=== PATIENT | female | born 1955 | race Caucasian/White ===

== ENCOUNTER 2018-12-14 22:45 | Emergency (ER) | payer OTHER ==
[2018-12-14 23:51] LABS: Absolute Lymphocytes (CBC) 3.9 K/uL (0.7-4.9); Basophils % 0.4 % (0-1.3); Eosinophils % 4.6 % (0-4.4); Hematocrit 37.6 % (36.0-45.0); Lymphocytes % 43.7 % (15.3-44.8); MPV 7.3 fL (7.6-11.3); Monocytes % 7.1 % (3.3-12.3); RBC Red Blood Cell Count 4.33 M/uL (3.86-4.86)
[2018-12-14 23:53] LABS: Protime INR 0.91
[2018-12-15 00:22] LABS: ALT/SGPT 19 U/L (12-78); AST/SGOT 18 U/L (15-37); Alkaline Phosphatase 68 U/L (45-117); BUN Blood Urea Nitrogen 14 mg/dL (7-18); Bicarbonate 28 mmol/L (21-32); Bilirubin Direct < 0.1 mg/dL (0-0.2); Bilirubin Total 0.3 mg/dL (0.2-1.0); Glucose Level 262 mg/dL (74-106); Magnesium 2.3 mg/dL (1.8-2.4); NT PRO-BNP 65 pg/mL (<125); Potassium 4.6 mmol/L (3.5-5.1); Protein, Total 8.1 g/dL (6.4-8.2); Sodium Level 139 mmol/L (136-145); Troponin (Emerg Dept Use Only) < 0.02 ng/mL (0.0-0.045)
--- NOTE | 2018-12-15 00:48 | ER ---
Nurse's Notes [facility] Name: Keiko Rodriguez Age: 63 yrs Sex: Female : 1955 Arrival Date: 12/14/2018 Time: 22:50 Bed 26 Private MD: Wilbur Leonard R Diagnosis: Pain in right shoulder Presentation: 12/14 23:11 Presenting complaint: Patient states: i have rotator cuff pain in both arms radiating mg2 to my neck that has been going on for few days now but aggravated by physical activity today like planting of grass. pain is more in the right arm. Transition of care: patient was not received from another setting of care. Onset of symptoms was December 14, 2018. Risk Assessment: Do you want to hurt yourself or someone else? Patient reports no desire to harm self or others. Initial Sepsis Screen: Does the patient meet any 2 criteria? No. Patient's initial sepsis screen is negative. Does the patient have a suspected source of infection? No. Patient's initial sepsis screen is negative. Care prior to arrival: None. 23:11 Method Of Arrival: Ambulatory mg2 23:11 Acuity: CITLALI 3 mg2 Triage Assessment: 23:16 General: Appears in no apparent distress. comfortable, Behavior is calm, cooperative. mg2 Pain: Complains of pain in both arms Pain radiates to neck Pain currently is 8 out of 10 on a pain scale. Quality of pain is described as aching, Pain began gradually, 2-3 days ago. Is intermittent. EENT: No deficits noted. Neuro: Level of Consciousness is awake, alert, obeys commands, Oriented to person, place, time, situation. Cardiovascular: Capillary refill < 3 seconds Patient's skin is warm and dry. Respiratory: Airway is patent Respiratory effort is even, unlabored, Respiratory pattern is regular, symmetrical. GI: No signs and/or symptoms were reported involving the gastrointestinal system. : No signs and/or symptoms were reported regarding the genitourinary system. Derm: Skin is intact, is healthy with good turgor, Skin is pink, warm \T\ dry. normal. Musculoskeletal: Circulation, motion, and sensation intact. Capillary refill < 3 seconds, Reports pain in right arm and left arm. Historical: - Allergies: 23:15 Morphine; mg2 23:15 Tramadol HCl; mg2 23:15 morphine derivatives; mg2 - PMHx: 23:15 Diabetes; mg2 - PSHx: 23:15 Carpal Tunnel Repair; ; mg2 - Immunization history:: Flu vaccine is up to date. - Social history:: Smoking status: Patient/guardian denies using tobacco, Patient/guardian denies using alcohol, street drugs, IV drugs. - Ebola Screening: : No symptoms or risks identified at this time. Screenin:19 Abuse screen: Denies threats or abuse. Denies injuries from another. Nutritional mg2 screening: No deficits noted. Tuberculosis screening: No symptoms or risk factors identified. Fall Risk None identified. Assessment: 23:18 Reassessment: pls see triage assessment. mg2 Vital Signs: 23:00 BP 181 / 83; Pulse 81; Resp 20; Temp 98.4(O); Pulse Ox 98% ; Weight 67.13 kg; Height 5 mg2 ft. 2 in. (157.48 cm); Pain 8/10; 23:42 BP 176 / 78; Pulse 80; Resp 18; Pulse Ox 97% on R/A; mg2 12/15 00:04 BP 184 / 85 Supine; Pulse 79; lt1 00:04 BP 180 / 83 Sitting; Pulse 80; lt1 00:04 BP 159 / 77 Standing; Pulse 82; lt1 12/14 23:00 Body Mass Index 27.07 (67.13 kg, 157.48 cm) mg2 ED Course: 12/14 22:50 Patient arrived in ED. do 22:50 Wilbur Leonard MD is Private Physician. do 22:58 Gaston Vieira NP is PHCP. pm1 22:58 Del Infante MD is Attending Physician. pm1 23:11 Aristeo Ponce RN is Primary Nurse. mg2 23:14 Triage completed. mg2 23:16 Arm band placed on. mg2 23:19 Patient has correct armband on for positive identification. Pulse ox on. NIBP on. Door mg2 closed. Warm blanket given. 23:41 No provider procedures requiring assistance completed. Inserted saline lock: 20 gauge mg2 in left antecubital area, using aseptic technique. Blood collected. 23:44 XRAY Chest (1 view) In Process Unspecified. EDMS 23:44 Shoulder Right (2 View) XRAY In Process Unspecified. EDMS 12/15 00:37 Sling applied to right arm. mg2 01:20 IV discontinued, intact, bleeding controlled, No redness/swelling at site. Pressure la1 dressing applied. Administered Medications: 01:20 Drug: lidocaine 5% patch 1 patches Route: Topical; Site: affected area; la1 Outcome: 00:47 Discharge ordered by MD. pm1 01:20 Discharged to home ambulatory. la1 01:20 Condition: stable 01:20 Discharge instructions given to patient, Instructed on discharge instructions, follow up and referral plans. medication usage, Demonstrated understanding of instructions, follow-up care, medications, Prescriptions given X 1. 01:21 Patient left the ED. la1 Signatures: Dispatcher [employer] EDMS Santos Mcqueen RN RN la1 Shiloh Fish Patrick, NP [employer] pm1 Aristeo Ponce RN RN mg2 Kelsy Silverio lt1 Corrections: (The following items were deleted from the chart) 12/14 23:16 23:11 Acuity: CITLALI 4 mg2 mg2 23:19 23:00 BP 181 / 83; Pulse 81bpm; Resp 20bpm; Pulse Ox 98%; Temp 98.4F Oral; lt1 mg2
--- NOTE | 2018-12-15 00:48 | EDPHYS ---
Physician Documentation [facility] Name: Keiko Rodriguez Age: 63 yrs Sex: Female : 1955 Arrival Date: 12/14/2018 Time: 22:50 Bed 26 Private MD: Wilbur Leonard R ED Physician Del Infante HPI: 12/14 23:25 This 63 yrs old Female presents to ER via Ambulatory with complaints of Right pm1 Shoulder pain. 23:25 The patient or guardian complains of pain, that is acute. The complaints affect the pm1 anterior aspect of right shoulder. Context: The problem was sustained at home, resulted from attempting to spank grandchild. Onset: The symptoms/episode began/occurred today. Treatment prior to arrival includes: no previous treatment. Modifying factors: The symptoms are alleviated by remaining still, the symptoms are aggravated by movement. Associated signs and symptoms: Pertinent negatives: deformity, fever, numbness, swelling, tingling. Severity of symptoms: in the emergency department the symptoms are unchanged. The patient has experienced similar episodes in the past, prior history of injured bilateral rotator cuffs. The patient has not recently seen a physician. Historical: - Allergies: 23:15 Morphine; mg2 23:15 Tramadol HCl; mg2 23:15 morphine derivatives; mg2 - PMHx: 23:15 Diabetes; mg2 - PSHx: 23:15 Carpal Tunnel Repair; ; mg2 - Immunization history:: Flu vaccine is up to date. - Social history:: Smoking status: Patient/guardian denies using tobacco, Patient/guardian denies using alcohol, street drugs, IV drugs. - Ebola Screening: : No symptoms or risks identified at this time. ROS: 23:25 Constitutional: Negative for fever, chills, and weight loss, Eyes: Negative for injury, pm1 pain, redness, and discharge, ENT: Negative for injury, pain, and discharge, Neck: Negative for injury, pain, and swelling, Cardiovascular: Negative for chest pain, palpitations, and edema, Respiratory: Negative for shortness of breath, cough, wheezing, and pleuritic chest pain, Abdomen/GI: Negative for abdominal pain, nausea, vomiting, diarrhea, and constipation, Back: Negative for injury and pain, : Negative for injury, bleeding, discharge, and swelling, MS/Extremity: Negative for injury and deformity, Skin: Negative for injury, rash, and discoloration. 23:25 Neuro: Positive for dizziness, for the past month with exertion, Negative for headache, numbness, tingling. Exam: 23:25 Constitutional: This is a well developed, well nourished patient who is awake, alert, pm1 and in no acute distress. Head/Face: Normocephalic, atraumatic. Eyes: Pupils equal round and reactive to light, extra-ocular motions intact. Lids and lashes normal. Conjunctiva and sclera are non-icteric and not injected. Cornea within normal limits. Periorbital areas with no swelling, redness, or edema. ENT: Nares patent. No nasal discharge, no septal abnormalities noted. Tympanic membranes are normal and external auditory canals are clear. Oropharynx with no redness, swelling, or masses, exudates, or evidence of obstruction, uvula midline. Mucous membranes moist. Neck: Trachea midline, no thyromegaly or masses palpated, and no cervical lymphadenopathy. Supple, full range of motion without nuchal rigidity, or vertebral point tenderness. No Meningismus. Chest/axilla: Normal chest wall appearance and motion. Nontender with no deformity. No lesions are appreciated. Cardiovascular: Regular rate and rhythm with a normal S1 and S2. No gallops, murmurs, or rubs. Normal PMI, no JVD. No pulse deficits. Respiratory: Lungs have equal breath sounds bilaterally, clear to auscultation and percussion. No rales, rhonchi or wheezes noted. No increased work of breathing, no retractions or nasal flaring. Abdomen/GI: Soft, non-tender, with normal bowel sounds. No distension or tympany. No guarding or rebound. No evidence of tenderness throughout. Back: No spinal tenderness. No costovertebral tenderness. Full range of motion. Skin: Warm, dry with normal turgor. Normal color with no rashes, no lesions, and no evidence of cellulitis. 23:25 Musculoskeletal/extremity: Extremities: grossly normal except: noted in the anterior aspect of right shoulder: pain with attempting to move arm up to shoulder level. able to move down right arm smoothly and slowly, There is no evidence of deformity, Circulation is intact in all extremities. 23:25 Neuro: Orientation: is normal, Cranial nerves: grossly normal, CN II- XII are normal as tested, Motor: no acute changes, moves all fours, Sensation: is normal, no obvious gross deficits, Gait: is steady, at a normal pace, without difficulty. Vital Signs: 23:00 BP 181 / 83; Pulse 81; Resp 20; Temp 98.4(O); Pulse Ox 98% ; Weight 67.13 kg; Height 5 mg2 ft. 2 in. (157.48 cm); Pain 8/10; 23:42 BP 176 / 78; Pulse 80; Resp 18; Pulse Ox 97% on R/A; mg2 12/15 00:04 BP 184 / 85 Supine; Pulse 79; lt1 00:04 BP 180 / 83 Sitting; Pulse 80; lt1 00:04 BP 159 / 77 Standing; Pulse 82; lt1 12/14 23:00 Body Mass Index 27.07 (67.13 kg, 157.48 cm) mg2 MDM: 12/14 23:07 Patient medically screened. pm1 12/15 00:29 Data reviewed: vital signs. Data interpreted: Pulse oximetry: on room air is 97 %. pm1 Interpretation: normal. Counseling: I had a detailed discussion with the patient and/or guardian regarding: the historical points, exam findings, and any diagnostic results supporting the discharge/admit diagnosis, lab results, radiology results, the need for outpatient follow up, a orthopedic surgeon, to return to the emergency department if symptoms worsen or persist or if there are any questions or concerns that arise at home. 12/14 23:17 Order name: Basic Metabolic Panel pm1 12/14 23:17 Order name: CBC with Diff; Complete Time: 00:27 pm12/14 23:17 Order name: LFT's pm12/14 23:17 Order name: Magnesium pm1 12/14 23:17 Order name: NT PRO-BNP; Complete Time: 00:27 pm1 12/14 23:17 Order name: PT-INR; Complete Time: 00:27 pm1 12/14 23:17 Order name: Troponin (emerg Dept Use Only); Complete Time: 00:27 pm12/14 23:17 Order name: XRAY Chest (1 view) pm1 12/14 23:17 Order name: EKG; Complete Time: 23:19 pm1 06/30 23:17 Order name: Shoulder Right (2 View) XRAY pm1 12/14 23:18 Order name: Basic Metabolic Panel; Complete Time: 00:27 EDMS 12/14 23:18 Order name: Liver (Hepatic) Function; Complete Time: 00:27 EDMS 12/14 23:18 Order name: Magnesium; Complete Time: 00:27 EDMS 12/14 23:17 Order name: Cardiac monitoring; Complete Time: 23:41 pm1 12/14 23:17 Order name: EKG - Nurse/Tech; Complete Time: 23:41 pm1 12/14 23:17 Order name: IV Saline Lock; Complete Time: 23:41 pm1 12/14 23:17 Order name: Labs collected and sent; Complete Time: 23:41 pm1 12/14 23:17 Order name: O2 Per Protocol; Complete Time: 23:41 pm1 12/14 23:17 Order name: O2 Sat Monitoring; Complete Time: 23:41 pm1 12/14 23:17 Order name: Orthostatic Blood Pressure; Complete Time: 00:02 pm1 12/14 23:28 Order name: Sling; Complete Time: 00:37 pm1 Administered Medications: 01:20 Drug: lidocaine 5% patch 1 patches Route: Topical; Site: affected area; la1 Disposition: 12/15/18 00:47 Discharged to Home. Impression: Pain in right shoulder. - Condition is Stable. - Discharge Instructions: Shoulder Pain, How to Use a Sling. - Prescriptions for Diclofenac Sodium 75 mg Oral Tablet Sustained Release - take 1 tablet by ORAL route 2 times per day; 30 tablet. - Medication Reconciliation Form, Thank You Letter, Antibiotic Education, Prescription Opioid Use form. - Follow up: Emergency Department; When: As needed; Reason: Worsening of condition. Follow up: Private Physician; When: 2 - 3 days; Reason: Recheck today's complaints, Continuance of care, Re-evaluation by your physician. - Problem is new. - Symptoms have improved. Signatures: Dispatcher [employer] EDMS Santos Mcqueen RN RN la1 Gaston Vieira, [place] PATIENT [employer]ANION pm1 Aristeo Ponce RN RN mg2 Corrections: (The following items were deleted from the chart) 01:21 00:47 12/15/2018 00:47 Discharged to Home. Impression: Pain in right shoulder. la1 Condition is Stable. Forms are Medication Reconciliation Form, Thank You Letter, Antibiotic Education, Prescription Opioid Use. Follow up: Emergency Department; When: As needed; Reason: Worsening of condition. Follow up: Private Physician; When: 2 - 3 days; Reason: Recheck today's complaints, Continuance of care, Re-evaluation by your physician. Problem is new. Symptoms have improved. pm1
[2018-12-15] MEDS ORDERED: LIDOCAINE 5% PATCH ONE (01:26)
--- NOTE | 2018-12-15 08:28 | RAD REPORT ---
EXAM DESCRIPTION: Shoulder Right 2 View - 12/14/2018 11:44 pm CLINICAL HISTORY: Right shoulder pain, suspected rotator cuff tear COMPARISON: None. TECHNIQUE: Internal and external rotation views of the right shoulder were obtained. FINDINGS: There is no fracture or dislocation. AC joint degenerative changes are present mild for a ge. Degenerative changes seen along the undersurface of the acromion. Acromial humeral joint space is normal. There are faint calcifications likely related to a calcific tendinitis. Minimal spurring is seen at the greater tuberosity. No acute or suspicious findings. IMPRESSION: Right shoulder degenerative changes are present without an acute finding seen. Concerns for rotator cuff tear can be addressed with MR imaging.
--- NOTE | 2018-12-15 08:30 | RAD REPORT ---
EXAM DESCRIPTION: RAD - Chest Single View - 12/14/2018 11:44 pm CLINICAL HISTORY: Chest pain, bilateral shoulder pain COMPARISON: None. TECHNIQUE: AP portable chest image was obtained 2335 hours . FINDINGS: Lungs are clear. Heart and vasculature are normal. No measurable pleural effusion and no p neumothorax. No acute bony abnormality seen. No acute aortic findings suspected. IMPRESSION: No acute cardiopulmonary process.
--- NOTE | 2018-12-15 19:44 | EKG ---
Test Date: 2018-12-14 Test Time: 23:23:14 Plugman: MG MEASUREMENT RESULTS: Intervals: Rate: 82 ND: 210 QRSD: 78 QT: 382 QTc: 446 [place]: P: 49 ND: 210 QRS: -24 T: 30 INTERPRETIVE STATEMENTS: Sinus rhythm with 1st degree AV block Septal infarct, age undetermined Abnormal ECG Compared to ECG 05/27/1999 20:45:00 First degree AV block now present Myocardial infarct finding now present Electronically Signed On 12-15-18 19:40:41 CDT by Bautista Garrison
== END 2018-12-15 01:21 | disposition home or self-care (01) ==
LOC: ER 22:45
DX: M25.511 Pain in right shoulder (principal); Z88.5 Allergy status to narcotic agent; Z88.6 Allergy status to analgesic agent
CPT/HCPCS: 36415; 71045; 80048; 80076; 83735; 83880; 84484; 85025; 85610; 93005; 99284

== ENCOUNTER 2019-06-28 19:38 | Emergency (ER) | payer OTHER ==
--- OUTSIDE RECORDS SUMMARY | 2019-06-28 19:40 | XMS REPORT ---
:1955 [facility] Address [address] [place] [address] Dr. Silver [address] [place] [id number] Care Team Providers Name Role Phone Unavailable Unavailable Unavailable Problems This patient has no known problems. Allergies, Adverse Reactions, Alerts This patient has no known allergies or adverse reactions. Medications This patient has no known medications.
--- OUTSIDE RECORDS SUMMARY | 2019-06-28 19:40 | XMS REPORT | Summary of Care ---
:1955 Author Organization [facility] Address [address] [place] [address] Care Team Providers Name Role Phone Víctor Lr MD Primary Care Provider Reason for Referral MRI/CAT Scan (Routine) Status Reason Specialty Diagnoses / Referred By Referred To Procedures Contact Contact New Request Diagnostic Diagnoses Adhesive capsulitis of right shoulder Víctor Lr Radiology Procedures MR SHOULDER RIGHT WO CONTRAST MD HEATH [address] [place] [address] [address] [place] [address] (Routine) Status Reason Specialty Diagnoses / Referred By Referred To Procedures Contact Contact New Request Location Psychiatry Diagnoses Major depressive disorder with current active episode, unspecified depression episode severity, unspecified whether recurrent Víctor Lr Preference Procedures CONSULT/REFERRAL PSYCHOLOGY MD HEATH [address] [place] [address] [address] [place] [address] Reason for Visit Reason Comments REFERRAL Ortho Diabetes Shoulder Pain 12/24 Pelvic Pain right side Depression Encounter Details Date Type Department Care Team Description 02/10/2019 Office Visit [facility] Pediatric Víctor Lr III, Adhesive capsulitis of right shoulder (Primary Dx); and Adult Primary MD Major depressive disorder with current active episode, unspecified depression episode severity, unspecified whether recurrent Care- [address] [place] [address] , [address] [place] [address] [place], [place] [phone] Allergies Active Allergy Reactions Severity Noted Date Comments Morphine Rash 02/18/2018 Tramadol Nausea and/or Vomiting High 02/18/2018 documented as of this encounter (statuses as of 02/10/2019) Medications Medication Sig Dispensed Refills Start Date End Date Status Insulin Detemir inject 42 Units 1 Box 11 02/18/2018 Active (LEVEMIR FLEXTOUCH under the skin U-100 INSULN) 100 daily. unit/mL (3 mL) injection Insulin [place], Use as directed 1 Box 11 02/18/2018 Active Disposable, (ADVOCATE PEN NEEDLE) 31 gauge x 3/16" Ndle nitroglycerin Place 1 tablet 30 tablet 1 06/25/2018 Active (NITROSTAT) 0.4 mg under the tongue sublingual tablet every 5 (five) minutes as needed for Chest pain. lisinopril 10 mg tablet Take 1 tablet by 30 tablet 11 06/25/2018 Active mouth daily. Insulin Lispro, Human, inject 5-15 1 Box 11 07/29/2018 Active (HUMALOG U-100 INSULIN) Units under the 100 unit/mL cartridge skin before meals. ezetimibe 10 mg Take 1 tablet by 30 tablet 3 07/29/2018 Active tabletIndications: mouth daily. Mixed hyperlipidemia FLUoxetine 10 mg Take 1 capsule 30 capsule 11 02/10/2019 Active capsuleIndications: by mouth daily. Major depressive disorder with current active episode, unspecified depression episode severity, unspecified whether recurrent Hospital, Clinic, Ordered Dose Route Frequency Start Date End Date Status or Other Facility Administered Medication triamcinolone 40 mg Intra-artic ONCE 02/10/2019 Ended acetonide (KENALOG) u 9 injection 40 mg triamcinolone 40 mg Intra-artic ONCE 02/10/2019 Discontinued acetonide (KENALOG) u 9 injection 40 mg documented as of this encounter (statuses as of 02/10/2019) Active Problems Problem Noted Date Type 2 diabetes mellitus without complication, with long-term current use of insulin Essential hypertension 07/11/2018 Hyperlipidemia, unspecified hyperlipidemia type 07/11/2018 documented as of this encounter (statuses as of 02/10/2019) Immunizations Name Administration Dates Next Due Influenza Virus Vaccine Quad IM 3+ YRS 06/25/2018 documented as of this encounter Social History Tobacco Use Types Packs/Day Years Used Date Never Smoker Smokeless Tobacco: Never Used Alcohol Use Drinks/Week oz/Week Comments No Sex Assigned at Date Recorded Not on file Job Start Date Occupation Industry Not on file Not on file Not on file Travel History Travel Start Travel End No recent travel history available. documented as of this encounter Last Filed Vital Signs Vital Sign Reading Time Taken Comments Blood Pressure 138/79 02/10/2019 8:57 AM CDT Pulse 82 02/10/2019 8:57 AM CDT Temperature 36.8 C (98.3 F) 02/10/2019 8:57 AM CDT Respiratory Rate 18 02/10/2019 8:57 AM CDT Oxygen Saturation 96% 02/10/2019 8:57 AM CDT Inhaled Oxygen Concentration - - Weight 69.5 kg (153 lb 3.2 oz) 02/10/2019 8:57 AM CDT Height 157.5 cm (5' 2") 02/10/2019 8:57 AM CDT Body Mass Index 28.02 02/10/2019 8:57 AM CDT documented in this encounter Progress Notes Víctor Lr III, MD - 02/10/2019 8:40 AM CDT Cc: Chief Complaint Patient presents with REFERRAL Ortho Diabetes Shoulder Pain 12/24 Pelvic Pain right side Depression Keiko Rodriguez is a 63 year old female. Shoulder Pain The pain is present in the right shoulder. This is a recurrent problem. The current episode started more than 1 year ago. There has been no history of extremity trauma. The problem occurs intermittently. The problem has been gradually worsening. The quality of the pain is described as aching. The painis moderate. Associated symptoms include a limited range of motion. Pertinent negatives include no fever. The treatment provided mild relief. Medications Outpatient Medications Prior to Visit Medication Sig Dispense Refill Insulin Lispro, Human, (HUMALOG U-100 INSULIN) 100 unit/mL cartridge inject 5-15 Units under theskin before meals. 1 Box 11 lisinopril 10 mg tablet Take 1 tablet by mouth daily. 30 tablet 11 Insulin Detemir (LEVEMIR FLEXTOUCH U-100 INSULN) 100 unit/mL (3 mL) injection inject 42 Units under the skin daily. 1 Box 11 Insulin [place], Disposable, (ADVOCATE PEN NEEDLE) 31 gauge x 3/16" Ndle Use as directed 1 Box 11 ezetimibe 10 mg tablet Take 1 tablet by mouth daily. 30 tablet 3 nitroglycerin (NITROSTAT) 0.[address] 1 tablet under the tongue every 5 (five) minutes as needed for Chest pain. 30 tablet 1 No facility-administered medications prior to visit. Review of Systems Constitutional: Negative for fever and unexpected weight change. Respiratory: Negative for cough and shortness of breath. Cardiovascular: Negative for leg swelling. Genitourinary: Positive for pelvic pain. Musculoskeletal: Positive for arthralgias. Skin: Negative for rash. Neurological: Negative for headaches. Psychiatric/Behavioral: Positive for dysphoric mood and sleep disturbance. Hematological: Negative for adenopathy. Does not bruise/bleed easily. Vital Signs BP 138/79 (BP Location: Left arm, Patient Position: Sitting, BP CUFF SIZE: Adult Medium) | Pulse 82 | Temp 36.8 C (98.3 F) (Oral) | Resp 18 | Ht 5' 2" (1.575 m) | Wt 153 lb 3.2 oz (69.5 kg) |SpO2 96% | BMI 28.02 kg/m Physical Exam Constitutional: She is oriented to person, place, and time. No distress. Overweight female HENT: Head: Normocephalic. Eyes: Pupils are equal, round, and reactive to light. Neck: Normal range of motion. Cardiovascular: Normal rate and regular rhythm. Pulmonary/Chest: Effort normal. Musculoskeletal: She exhibits no edema. Very limited motion right shoulder, diffuse pain, left ok, Neurological: She is alert and oriented to person, place, and time. Skin: Skin is warm and dry. No rash noted. Psychiatric: depressed Vitals reviewed. Assessment/Plan 1. Major depressive disorder with current active episode, unspecified depression episode severity, unspecified whether recurrent - CONSULT/REFERRAL PSYCHOLOGY - FLUoxetine 10 mg capsule; Take 1 capsule by mouth daily. Dispense: 30 capsule ; Refill: 11 2. Adhesive capsulitis After verbal consent , right shoulder prepped with betadine, injected with posterior approach, with 40mg kenalog and 4ml of 1 % lidocaine. Patient tolerated well, cold compress on and off, then gentle rom exercises Will get mr of shoulder to evaluate tears documented in this encounter Plan of Treatment Name Type Priority Associated Diagnoses Order Schedule MR SHOULDER RIGHT WO IMAGING Routine Adhesive capsulitis of Expected: 02/10, CONTRAST right shoulder Expires: 02/11/2020 Health Maintenance Due Date Last Done Comments PNEUMOCOCCAL 0-64 YEARS COMBINED SERIES (1 1960 of 1 - PPSV23) EYE EXAM 1965 URINE MICROALBUMIN 1964 DTaP,Tdap,and Td Vaccines (1 - Tdap) 1973 PAP SMEAR 1975 COLONOSCOPY 2004 Zoster Recombinant Vaccine (SHINGRIX) (1 2004 of 2) HgA1C 12/23/2018 06/25/2018 INFLUENZA VACCINE (#1) 2019 06/25/2018 CREATININE (SERUM) 06/25/2019 06/25/2018 LDL-C 06/25/2019 06/25/2018 MAMMOGRAM 06/26/2019 06/26/2018 FOOT EXAM 07/29/2019 07/29/2018, 07/29/2018 HEPATITIS C (HCV) SCREEN Completed 06/25/2018 documented as of this encounter Results Not on filedocumented in this encounter Visit Diagnoses Diagnosis Adhesive capsulitis of right shoulder - Primary Adhesive capsulitis of shoulder Major depressive disorder with current active episode, unspecified depression episode severity, unspecified whether recurrent documented in this encounter Administered Medications Medication Order MAR Action Action Date Dose Rate Site triamcinolone acetonide (KENALOG) Given 02/10/2019 9:42 AM CDT 40 mg injection 40 mg 40 mg, Intra-articular, ONCE, 1 dose, 02/10/19 at 1045, Routine documented in this encounter documented as of this encounter
--- OUTSIDE RECORDS SUMMARY | 2019-06-28 19:41 | XMS REPORT | Summary of Care ---
:1955 Author Organization [facility] Address [address] [place] [address] Care Team Providers Name Role Phone Víctor Lr MD Primary Care Provider Reason for Referral MRI/CAT Scan (Routine) Status Reason Specialty Diagnoses / Referred By Referred To Procedures Contact Contact Closed Diagnostic Diagnoses Adhesive capsulitis of right shoulder Víctor Lr Radiology Procedures MR SHOULDER RIGHT BENJAMIN SARKAR III, MD [address] [place] [address] [address] [place] [address] MRI/CAT Scan (Routine) Status Reason Specialty Diagnoses / Referred By Referred To Procedures Contact Contact Closed Diagnostic Diagnoses Adhesive capsulitis of right shoulder Víctor Lr Radiology Procedures MR SHOULDER RIGHT BENJAMIN SARKAR III, MD [address] [place] [address] [address] [place] [address] Reason for Visit MRI/CAT Scan (Routine) Status Reason Specialty Diagnoses / Referred By Referred To Procedures Contact Contact Closed Diagnostic Diagnoses Adhesive capsulitis of right shoulder Víctor Lr Radiology Procedures MR SHOULDER RIGHT WO MELLO JOE MD [address] [place] [address] Dr[address] [place] [address] Encounter Details Date Type Department Care Team Description 02/17/2019 Hospital Encounter [facility] Víctor Mendoza III, Arrived [place] [facility] [address] [place] [address] [phone] [place] [address] Allergies Active Allergy Reactions Severity Noted Date Comments Morphine Rash 02/18/2018 Tramadol Nausea and/or Vomiting High 02/18/2018 documented as of this encounter (statuses as of 02/18/2019) Medications Medication Sig Dispensed Refills Start Date End Date Status Insulin Detemir inject 42 Units 1 Box 11 02/18/2018 Active (LEVEMIR FLEXTOUCH under the skin U-100 INSULN) 100 daily. unit/mL (3 mL) injection Insulin [place], Use as directed 1 Box 11 02/18/2018 [...] depression episode severity, unspecified whether recurrent documented as of this encounter (statuses as of 02/18/2019) Active Problems Problem Noted Date Type 2 diabetes mellitus without complication, with long-term current use of insulin Essential hypertension 07/11/2018 Hyperlipidemia, unspecified hyperlipidemia type 07/11/2018 documented as of this encounter (statuses as of 02/18/2019) Immunizations Name Administration Dates Next Due Influenza [...] of this encounter Last Filed Vital Signs Not on filedocumented in this encounter Plan of Treatment Health Maintenance Due Date Last Done Comments [...] Completed 06/25/2018 documented as of this encounter Procedures Procedure Name Priority Date/Time Associated Diagnosis Comments MR SHOULDER RIGHT Routine 02/17/2019 9:46 AM Adhesive capsulitis Results for this WO CONTRAST CDT of right shoulder procedure are in the results section. documented in this encounter Results MR SHOULDER RIGHT WO CONTRAST (02/17/2019 9:46 AM CDT) Specimen Impressions Performed At PACS/VR/DOSE Rotator cuff tendon tears involving the supraspinatus, infraspinatus and subscapularis on a background of tendinosis as above-described. Extra-articular bicipital tenosynovitis with mild to moderate intra-articular tendinosis. 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 Degenerative signal of the superior labrum. Isolated fatty atrophy of the teres minor can be seen with quadrilateral space syndrome. Camron Young MD., have reviewed this study and agree with the above report. Narrative Performed At * * * * * * * * ORIGINAL REPORT * * * * * * * * PACS/VR/DOSE EXAM: MRI RIGHT SHOULDER COMPARISON: None. HISTORY: Shoulder pain, rotator cuff tear/impingement suspected TECHNIQUE AND FINDINGS: 1.5T multiplanar multiweighted MR imaging of the right shoulder was performed without IV contrast. BONE AND JOINT: Acromion morphology is type 1. A small subacromial enthesophyte is present and can predispose to external impingement. The acromioclavicular joint demonstrates osteophytosis, capsular hypertrophy, and subcortical cystic change, and small joint effusion, and marrow edema of the subarticular distal clavicle and the acromion. Trace volume glenohumeral joint effusion is present. Thinning of the glenohumeral cartilage is seen. No full-thickness or high-grade chondral loss is identified. No focal marrow signal intensity abnormality is present. Enthesophytosis of the greater tuberosity is noted. A degenerative cyst is noted at the lesser tuberosity. Intermediate signal is seen in the superior labrum at the 12:00 to 10:00 position. No labral detachment is identified. LIGAMENTS AND TENDONS: Biceps tendon:A small amount of fluid is in the biceps tendon sheath. There is thickening and increased signal of the intra-articular biceps tendon. Supraspinatus tendon: A bursal surface partial-thickness tear is noted at the humeral insertion with a full thickness perforation extending to the articular surface. No tendon retraction is noted. A background of moderate tendinosis is identified, manifested by thickening and increased signal of the tendon. Infraspinatus tendon: Partial-thickness interstitial tear is seen at the critical zone, extending to the musculotendinous junction. A background of tendinosis is also identified. Subscapularis tendon: The tendon is thickened with intermediate signal, consistent with moderate tendinosis. Articular surface fraying is identified. In addition, a subacute partial-thickness interstitial tear is better seen in the sagittal sequences. Medialization of the biceps tendon is identified, worrisome for biceps pully mechanism injury. Teres minor tendon: Intact. SOFT TISSUES: Isolated fatty atrophy of the teres minor is identified. No muscle edema is present. Trace fluid is present in the subacromial subdeltoid bursae. Small volume fluid distends the subcoracoid bursa. Procedure Note [facility], Radiant Results Inft User - 02/17/2019 3:58 PM CDT * * * * * * * * ORIGINAL REPORT * * * * * * * * EXAM: MRI RIGHT SHOULDER COMPARISON: None. HISTORY: Shoulder pain, rotator cuff tear/impingement suspected TECHNIQUE AND FINDINGS: 1.5T multiplanar multiweighted MR imaging of the right shoulder was performed without IV contrast. BONE AND JOINT: Acromion morphology is type 1. A small subacromial enthesophyte is present and can predispose to external impingement. The acromioclavicular joint demonstrates osteophytosis, capsular hypertrophy, and subcortical cystic change, and small joint effusion, and marrow edema of the subarticular distal clavicle and the acromion. Trace volume glenohumeral joint effusion is present. Thinning of the glenohumeral cartilage is seen. No full-thickness or high-grade chondral loss is identified. No focal marrow signal intensity abnormality is present. Enthesophytosis of the greater tuberosity is noted. A degenerative cyst is noted at the lesser tuberosity. Intermediate signal is seen in the superior labrum at the 12:00 to 10:00 position. No labral detachment is identified. LIGAMENTS AND TENDONS: Biceps tendon: A small amount of fluid is in the biceps tendon sheath. There is thickening and increased signal of the intra-articular biceps tendon. Supraspinatus tendon: A bursal surface partial-thickness tear is noted at the humeral insertion with a full thickness perforation extending to the articular surface. No tendon retraction is noted. A background of moderate tendinosis is identified, manifested by thickening and increased signal of the tendon. Infraspinatus tendon: Partial-thickness interstitial tear is seen at the critical zone, extending to the musculotendinous junction. A background of tendinosis is also identified. Subscapularis tendon: The tendon is thickened with intermediate signal, consistent with moderate tendinosis. Articular surface fraying is identified. In addition, a subacute partial-thickness interstitial tear is better seen in the sagittal sequences. Medialization of the biceps tendon is identified, worrisome for biceps pully mechanism injury. Teres minor tendon: Intact. SOFT TISSUES: Isolated fatty atrophy of the teres minor is identified. No muscle edema is present. Trace fluid is present in the subacromial subdeltoid bursae. Small volume fluid distends the subcoracoid bursa. IMPRESSION Rotator cuff tendon tears involving the supraspinatus, infraspinatus and subscapularis on a background of tendinosis as above-described. Extra-articular bicipital tenosynovitis with mild to moderate intra-articular tendinosis. 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 Degenerative signal of the superior labrum. Isolated fatty atrophy of the teres minor can be seen with quadrilateral space syndrome. IConrad MD., have reviewed this study and agree with the above report. Performing Organization Address City/State/Zipcode Phone Number PACS/VR/DOSE documented in this encounter Visit Diagnoses Diagnosis Adhesive capsulitis of right shoulder Adhesive capsulitis of shoulder documented in this encounter documented as of this encounter
--- OUTSIDE RECORDS SUMMARY | 2019-06-28 19:41 | XMS REPORT | Summary of Care ---
:1955 Author Organization [facility] Address [address] [place] [address] Care Team Providers Name Role Phone Víctor Lr MD Primary Care Provider Reason for Referral (Routine) Status Reason Specialty Diagnoses / Referred By Referred To Procedures Contact Contact New Request Orthopedic Surgery Diagnoses Adhesive capsulitis of right shoulder Víctor rL Procedures CONSULT/REFERRAL ORTHOPAEDIC SURGERY MD HEATH [address] [place] [address] Dr. Godwin [address] [place] [address] MRI/CAT Scan (Routine) Status Reason Specialty Diagnoses / Referred By Referred To Procedures Contact Contact Closed Diagnostic Diagnoses Adhesive capsulitis of right shoulder Víctor Lr Radiology Procedures MR SHOULDER RIGHT WO CONTRAST MD HEATH [address] [place] [address] Dr. Godwin [address] [place] [address] (Routine) Status Reason Specialty Diagnoses / Referred By Referred To Procedures Contact Contact New Request Location Psychiatry Diagnoses Major depressive disorder with current active episode, unspecified depression episode severity, unspecified whether recurrent Víctor Lr Preference Procedures CONSULT/REFERRAL PSYCHOLOGY MD HEATH [address] [place] [address] Dr. Godwin [address] [place] [address] Reason for Visit Reason Comments REFERRAL Ortho Diabetes Shoulder Pain 12/24 Pelvic Pain right side Depression Encounter Details Date Type Department Care Team Description 02/10/2019 Office Visit [facility] Pediatric Víctor Lr III, Adhesive capsulitis of right shoulder (Primary Dx); and Adult Primary MD Major depressive disorder with current active episode, unspecified depression episode severity, unspecified whether recurrent Care- [address] [facility] , [address] [place] [address] [place], [place] [phone] [phone] Allergies Active Allergy Reactions Severity Noted Date Comments Morphine Rash 02/18/2018 Tramadol Nausea and/or Vomiting High 02/18/2018 documented as of this encounter (statuses as of 02/18/2019) Medications Medication Sig Dispensed Refills Start Date End Date Status Insulin Detemir inject 42 Units 1 Box 11 02/18/2018 Active (LEVEMIR FLEXTOUCH under the skin U-100 INSULN) 100 daily. unit/mL (3 mL) injection Insulin [place], Use as directed 1 Box 11 02/18/2018 [...] presents with REFERRAL Ortho Diabetes Shoulder Pain 7/10 Pelvic Pain right side Depression Keiko Rodriguez [...] the skin daily. 1 Box 11 Insulin [place], Disposable, (ADVOCATE PEN NEEDLE) 31 gauge x [...] documented in this encounter Plan of Treatment Health [...] 06/25/2018 documented as of this encounter Results MR SHOULDER RIGHT WO [...] can be seen with quadrilateral space syndrome. I, Conrad Cassidy MD., have reviewed this study and agree [...]
--- OUTSIDE RECORDS SUMMARY | 2019-06-28 19:41 | XMS REPORT | Summary of Care ---
:1955 Author Organization [facility] Address [address] [place] [address] Care Team Providers Name Role Phone Víctor Lr MD Primary Care Provider Reason for Referral MRI/CAT Scan (Routine) Status Reason Specialty Diagnoses / Referred By Referred To Procedures Contact Contact New Request Diagnostic Diagnoses Adhesive capsulitis of right shoulder Víctor Lr Radiology Procedures MR SHOULDER RIGHT WO CONTRAST MD HEATH [address] [place] [address] [address] [place] [address] (Routine) Status Reason Specialty Diagnoses / Referred By Referred To Procedures Contact Contact New Request Location Psychiatry Diagnoses Major depressive disorder with current active episode, unspecified depression episode severity, unspecified whether recurrent Víctor Lr Preference Procedures CONSULT/REFERRAL PSYCHOLOGY MD HEATH [address] [place] [address] [address] [place] [address] Reason for Visit Reason Comments REFERRAL Ortho Diabetes Shoulder Pain 12/24 Pelvic Pain right side Depression Encounter Details Date Type Department Care Team Description 02/10/2019 Office Visit [facility] Pediatric Víctor Lr III, Adhesive capsulitis of right shoulder (Primary Dx); and Adult Primary MD Major depressive disorder with current active episode, unspecified depression episode severity, unspecified whether recurrent Care- [address] [place] [address] , [address] [place] [address] [place], [place] [phone] Allergies Active Allergy Reactions Severity Noted Date Comments Morphine Rash 02/18/2018 Tramadol Nausea and/or Vomiting High 02/18/2018 documented as of this encounter (statuses as of 02/10/2019) Medications Medication Sig Dispensed Refills Start Date End Date Status Insulin Detemir inject 42 Units 1 Box 11 02/18/2018 Active (LEVEMIR FLEXTOUCH under the skin U-100 INSULN) 100 daily. unit/mL (3 mL) injection Insulin [place], Use as directed 1 Box 11 02/18/2018 [...] the skin daily. 1 Box 11 Insulin [place], Disposable, (ADVOCATE PEN NEEDLE) 31 gauge x [...]
[2019-06-28] MEDS ORDERED: NA CHLORIDE 0.9% 1,000 ML ONE (20:37)
[2019-06-28] MEDS ORDERED: ONDANSETRON 4 MG/2 ML VIAL ONE (20:37)
[2019-06-28] MEDS ORDERED: KETOROLAC 30 MG/ML INJ ONE (20:37)
[2019-06-28] MEDS ORDERED: METOCLOPRAMIDE 10 MG/2mL INJ ONE (20:39)
[2019-06-28 21:30] LABS: Bilirubin Direct 0.2 mg/dL (0-0.2); Bilirubin Total 0.8 mg/dL (0.2-1.0); Potassium 4.6 mmol/L (3.5-5.1); Protein, Total 8.2 g/dL (6.4-8.2)
[2019-06-28 21:43] LABS: Basophils % 0.6 % (0-1.3); Hematocrit 41.6 % (36.0-45.0); Lymphocytes % 23.8 % (15.3-44.8); MPV 7.2 fL (7.6-11.3); RBC Red Blood Cell Count 4.79 M/uL (3.86-4.86)
--- NOTE | 2019-06-28 23:05 | EDPHYS ---
Physician Documentation [facility] Name: Keiko Rodriguez Age: 64 yrs Sex: Female : 1955 Arrival Date: 06/28/2019 Time: 19:43 Bed 14 Private MD: ED Physician La Bonner HPI: 06/28 20:26 This 64 yrs old Female presents to ER via Ambulatory with complaints of ma2 Headache. 20:26 The patient complains of pain to the forehead. Onset: The symptoms/episode ma2 began/occurred gradually, 1 week(s) ago. Associated signs and symptoms: Pertinent negatives: fever, paresthesias, sinus congestion. Headache History: The patient has had previous headaches and this one is similar to previous episodes. The patient has not experienced similar symptoms in the past. Historical: - Allergies: 19:51 Morphine; aj1 19:51 Tramadol HCl; aj1 - Home Meds: 19:51 Lisinopril Oral [Active]; insulin [Active]; aj1 - PMHx: 19:51 Diabetes; Hypertension; aj1 - Immunization history:: Flu vaccine is not up to date. - Social history:: Smoking status: Patient/guardian denies using tobacco. - Ebola Screening: : Patient denies travel to an Ebola-affected area in the 21 days before illness onset. - Family history:: not pertinent. ROS: 20:26 Constitutional: Negative for fever, chills, and weight loss. ma2 20:26 All other systems are negative. Exam: 20:26 Constitutional: This is a well developed, well nourished patient who is awake, alert, ma2 and in no acute distress. Head/Face: Normocephalic, atraumatic. Eyes: Pupils equal round and reactive to light, extra-ocular motions intact. Lids and lashes normal. Conjunctiva and sclera are non-icteric and not injected. Cornea within normal limits. Periorbital areas with no swelling, redness, or edema. ENT: Nares patent. No nasal discharge, no septal abnormalities noted. Tympanic membranes are normal and external auditory canals are clear. Oropharynx with no redness, swelling, or masses, exudates, or evidence of obstruction, uvula midline. Mucous membranes moist. Neck: Trachea midline, no thyromegaly or masses palpated, and no cervical lymphadenopathy. Supple, full range of motion without nuchal rigidity, or vertebral point tenderness. No Meningismus. Chest/axilla: Normal chest wall appearance and motion. Nontender with no deformity. No lesions are appreciated. Cardiovascular: Regular rate and rhythm with a normal S1 and S2. No gallops, murmurs, or rubs. Normal PMI, no JVD. No pulse deficits. Respiratory: Lungs have equal breath sounds bilaterally, clear to auscultation and percussion. No rales, rhonchi or wheezes noted. No increased work of breathing, no retractions or nasal flaring. Abdomen/GI: Soft, non-tender, with normal bowel sounds. No distension or tympany. No guarding or rebound. No evidence of tenderness throughout. Skin: Warm, dry with normal turgor. Normal color with no rashes, no lesions, and no evidence of cellulitis. MS/ Extremity: Pulses equal, no cyanosis. Neurovascular intact. Full, normal range of motion. Neuro: Awake and alert, GCS 15, oriented to person, place, time, and situation. Cranial nerves II-XII grossly intact. Motor strength 5/5 in all extremities. Sensory grossly intact. Cerebellar exam normal. Normal gait. Vital Signs: 19:51 BP 162 / 79; Pulse 76; Resp 18; Temp 97.3; Pulse Ox 98% on R/A; Weight 68.04 kg (R); aj1 Height 5 ft. 2 in. (157.48 cm) (R); Pain 9/10; 21:00 BP 196 / 78; Pulse 79; Resp 18; Pulse Ox 99% on R/A; Pain 9/10; aa1 22:00 BP 133 / 71; Pulse 82; Resp 18; Pulse Ox 99% on R/A; aa1 23:28 BP 140 / 77; Pulse 87; Resp 16; Temp 97.2; Pulse Ox 100% on R/A; Pain 0/10; aa1 19:51 Body Mass Index 27.44 (68.04 kg, 157.48 cm) aj1 [place] Coma Score: 20:26 Eye Response: spontaneous(4). Verbal Response: oriented(5). Motor Response: obeys ma2 commands(6). Total: 15. MDM: 20:12 Patient medically screened. ma2 20:26 Differential diagnosis: intracerebral hemorrhage, tension headache, traumatic injuries, ks2 uremia. 23:03 Data reviewed: vital signs, nurses notes. Counseling: I had a detailed discussion with [facility] the patient and/or guardian regarding: the historical points, exam findings, and any diagnostic results supporting the discharge/admit diagnosis, the presence of at least one elevated blood pressure reading (>120/80) during this emergency department visit, the need for outpatient follow up. Response to treatment: the patient's symptoms have resolved after treatment. ED course: she did not want to give urine, feels better want to go home . 06/28 20:06 Order name: Glucose, Ancillary Testing; Complete Time: 20:28 [facility] 06/28 20:30 Order name: Basic Metabolic Panel [facility] 06/28 20:30 Order name: CBC with Diff [facility] 06/28 20:30 Order name: Creatinine for Radiology [facility] 06/28 20:30 Order name: Hepatic Function [facility] 06/28 20:30 Order name: Lipase; Complete Time: 22:14 [facility] 06/28 20:30 Order name: CT Head Brain wo Cont [facility] 06/28 20:30 Order name: Chest Single View XRAY [facility] 06/28 20:30 Order name: Basic Metabolic Panel; Complete Time: 22:14 [facility] 06/28 20:30 Order name: CBC with Automated Diff; Complete Time: 22:14 [facility] 06/28 20:30 Order name: Creatinine (Radiology Only); Complete Time: 22:14 [facility] 06/28 20:30 Order name: Liver (Hepatic) Function; Complete Time: 22:14 [facility] 06/28 20:30 Order name: IV Saline Lock; Complete Time: 21:41 [facility] 06/28 20:30 Order name: Labs collected and sent; Complete Time: 21:41 [facility] Administered Medications: 21:35 Drug: NS 0.9% 1000 ml Route: IV; Rate: 1 bolus; Site: right antecubital; wh 22:36 Follow up: IV Status: Completed infusion; IV Intake: 1000ml aa1 21:37 Drug: TORadol 30 mg Route: IVP; Site: right antecubital; wh 22:37 Follow up: Response: No adverse reaction; Pain is decreased aa1 21:39 Drug: Reglan 10 mg Route: IVP; Site: right antecubital; wh 22:39 Follow up: Response: No adverse reaction; Marked relief of symptoms aa1 21:41 Drug: Zofran 4 mg Route: IVP; Site: right antecubital; 22:39 Follow up: Response: No adverse reaction; Marked relief of symptoms aa1 Disposition: 06/28/19 23:05 Discharged to Home. Impression: Weakness. - Condition is Stable. - Discharge Instructions: Weakness, [id number]. - Prescriptions for Reglan 10 mg Oral Tablet - take 1 tablet by ORAL route every 6 hours . take 30 minutes before meals and at bedtime; 100 tablet. - Medication Reconciliation Form, Thank You Letter, Antibiotic Education, Prescription Opioid Use form. - Follow up: Private Physician; When: Tomorrow; Reason: Continuance of care. Signatures: Dispatcher [employer] Kailyn Moreno RN RN aj1 Latisha Riggins RN RN aa1 Rashel Hall La Bonner MD MD ma2 Corrections: (The following items were deleted from the chart) 23:32 23:05 06/28/2019 23:05 Discharged to Home. Impression: Weakness. Condition is Stable. aa1 Prescriptions for Reglan 10 mg Oral Tablet - take 1 tablet by ORAL route every 6 hours . take 30 minutes before meals and at bedtime; 100 tablet. and Forms are Medication Reconciliation Form, Thank You Letter, Antibiotic Education, Prescription Opioid Use. Follow up: Private Physician; When: Tomorrow; Reason: Continuance of care. ma2
--- NOTE | 2019-06-28 23:05 | ER ---
Nurse's Notes [facility] Name: Keiko Rodriguez Age: 64 yrs Sex: Female : 1955 Arrival Date: 06/28/2019 Time: 19:43 Bed 14 Private MD: Diagnosis: Weakness Presentation: 06/28 19:46 Presenting complaint: Patient states: "I woke up having to go to the bathroom this aj1 morning, I got up, and I fell into the wall, and I asked my to help me to the bathroom and then I got back in bed. I feel like I don't have any strength. I have a lot of excruciating pain because both of my rotator cuffs need to be done." Patient also reports headache, generalized weakness. Denies any unilateral weakness, trouble speaking. Patient ambulated to triage with a steady gait. Transition of care: patient was not received from another setting of care. Onset of symptoms was June 28, 2019. Risk Assessment: Do you want to hurt yourself or someone else? Patient reports no desire to harm self or others. Initial Sepsis Screen: Does the patient meet any 2 criteria? No. Patient's initial sepsis screen is negative. Does the patient have a suspected source of infection? No. Patient's initial sepsis screen is negative. Care prior to arrival: None. 19:46 Method Of Arrival: Ambulatory aj1 19:46 Acuity: CITLALI 3 aj1 Triage Assessment: 19:51 Headache History: Denies prior headaches. General: Appears in no apparent distress. aj1 comfortable, Behavior is cooperative, drowsy. Pain: Complains of pain in occipital area Pain currently is 9 out of 10 on a pain scale. Pain began today. Neuro: Level of Consciousness is awake, alert, obeys commands. Cardiovascular: Patient's skin is warm and dry. Respiratory: Airway is patent Respiratory effort is even, unlabored, Respiratory pattern is regular, symmetrical. Historical: - Allergies: 19:51 Morphine; aj1 19:51 Tramadol HCl; aj1 - Home Meds: 19:51 Lisinopril Oral [Active]; insulin [Active]; aj1 - PMHx: 19:51 Diabetes; Hypertension; aj1 - Immunization history:: Flu vaccine is not up to date. - Social history:: Smoking status: Patient/guardian denies using tobacco. - Ebola Screening: : Patient denies travel to an Ebola-affected area in the 21 days before illness onset. - Family history:: not pertinent. Screenin:10 Abuse screen: Denies threats or abuse. Denies injuries from another. Nutritional aa1 screening: No deficits noted. Tuberculosis screening: No symptoms or risk factors identified. Fall Risk None identified. Assessment: 20:10 General: Appears in no apparent distress. uncomfortable, Behavior is calm, cooperative, aa1 appropriate for age. Pain: Complains of pain in forehead and scalp and occipital area Quality of pain is described as aching, throbbing, Is continuous. Neuro: Level of Consciousness is awake, alert, obeys commands, Oriented to person, place, time, situation, Moves all extremities. Gait is steady, Speech is normal, Facial symmetry appears normal, Reports headache frontal area, occipital area, weakness. Cardiovascular: Denies chest pain, diaphoresis, palpitations, shortness of breath. Respiratory: Airway is patent Respiratory effort is even, unlabored, Respiratory pattern is regular, symmetrical. GI: Reports nausea, vomiting. : No signs and/or symptoms were reported regarding the genitourinary system. EENT: No signs and/or symptoms were reported regarding the EENT system. Derm: Skin is intact, is healthy with good turgor, Skin is pink, warm \\T\\ dry. Musculoskeletal: Circulation, motion, and sensation intact. Capillary refill < 3 seconds. 21:07 Reassessment: Patient appears in no apparent distress at this time. Patient and/or aa1 family updated on plan of care and expected duration. Pain level reassessed. Patient is alert, oriented x 3, equal unlabored respirations, skin warm/dry/pink. Pt taken to CT at this time. 23:28 Reassessment: Patient appears in no apparent distress at this time. Patient is alert, aa1 oriented x 3, equal unlabored respirations, skin warm/dry/pink. Discussed d/c \\T\\ f/u instructions with pt; denies questions or concerns at this time. Ambulatory to lobby with steady gait. Patient denies pain at this time. Patient states feeling better. Vital Signs: 19:51 BP 162 / 79; Pulse 76; Resp 18; Temp 97.3; Pulse Ox 98% on R/A; Weight 68.04 kg (R); aj1 Height 5 ft. 2 in. (157.48 cm) (R); Pain 9/10; 21:00 BP 196 / 78; Pulse 79; Resp 18; Pulse Ox 99% on R/A; Pain 9/10; aa1 22:00 BP 133 / 71; Pulse 82; Resp 18; Pulse Ox 99% on R/A; aa1 23:28 BP 140 / 77; Pulse 87; Resp 16; Temp 97.2; Pulse Ox 100% on R/A; Pain 0/10; aa1 19:51 Body Mass Index 27.44 (68.04 kg, 157.48 cm) aj1 [place] Coma Score: 20:26 Eye Response: spontaneous(4). Verbal Response: oriented(5). Motor Response: obeys ma2 commands(6). Total: 15. ED Course: 19:43 Patient arrived in ED. jg7 19:50 Triage completed. aj1 19:51 Arm band placed on Patient placed in an exam room. aj1 20:10 Patient has correct armband on for positive identification. Bed in low position. Call aa1 light in reach. Pulse ox on. NIBP on. Warm blanket given. 20:12 La Bonner MD is Attending Physician. ma2 20:31 Latisha Riggins RN is Primary Nurse. aa1 21:00 Missed attempt(s): 20 gauge in right antecubital area. Bleeding controlled, band aid ds4 applied, catheter tip intact. 21:05 Missed attempt(s): 22 gauge in left antecubital area. Bleeding controlled, band aid ds4 applied, catheter tip intact. 21:07 Missed attempt(s): 22 gauge in left forearm. Bleeding controlled, band aid applied, aa1 catheter tip intact. 21:22 CT completed. Patient tolerated procedure well. Patient moved back from CT. bq 21:35 Inserted saline lock: 22 gauge in right antecubital area, using aseptic technique. aa1 Blood collected. 21:46 CT Head Brain wo Cont In Process Unspecified. EDMS 21:48 Chest Single View XRAY In Process Unspecified. EDMS 23:29 No provider procedures requiring assistance completed. IV discontinued, intact, aa1 bleeding controlled, No redness/swelling at site. Pressure dressing applied. Administered Medications: 21:35 Drug: NS 0.9% 1000 ml Route: IV; Rate: 1 bolus; Site: right antecubital; 22:36 Follow up: IV Status: Completed infusion; IV Intake: 1000ml aa1 21:37 Drug: TORadol 30 mg Route: IVP; Site: right antecubital; 22:37 Follow up: Response: No adverse reaction; Pain is decreased aa1 21:39 Drug: Reglan 10 mg Route: IVP; Site: right antecubital; 22:39 Follow up: Response: No adverse reaction; Marked relief of symptoms aa1 21:41 Drug: Zofran 4 mg Route: IVP; Site: right antecubital; 22:39 Follow up: Response: No adverse reaction; Marked relief of symptoms aa1 Intake: 22:36 IV: 1000ml; Total: 1000ml. aa1 Outcome: 23:05 Discharge ordered by . ma2 23:32 Discharged to home ambulatory, with significant other. aa1 23:32 Condition: good 23:32 Discharge instructions given to patient, significant other, Instructed on discharge instructions, follow up and referral plans. medication usage, Demonstrated understanding of instructions, follow-up care, medications, Prescriptions given X 1. 23:32 Patient left the ED. aa1 Signatures: Dispatcher [employer] EDMS Kailyn Gregorio RN RN Latisha Balderrama RN RN aa1 Glendy Reyes Donovan ds4 Rashel Hall Mohammad, MD MD ma2 Marleni Bravo jg7 Corrections: (The following items were deleted from the chart) 23:31 21:40 Inserted saline lock: 22 gauge in right antecubital area, using aseptic aa1 technique. Blood collected. aa1
[2019-06-28 23:43] VITALS: BP 140/77; TEMP 97.2; O2SAT 100
--- NOTE | 2019-06-29 07:57 | RAD REPORT ---
EXAM DESCRIPTION: Arielle Single View06/28/2019 9:48 pm CLINICAL HISTORY: Cough COMPARISON: November 2018 FINDINGS: The lungs appear clear of acute infiltrate. The heart is normal size IMPRESSION: No acute abnormalities displayed
--- NOTE | 2019-06-29 10:16 | RAD REPORT ---
EXAM DESCRIPTION: CT - Head Brain Wo Cont - 06/28/2019 10:33 pm CLINICAL HISTORY: 64 years Female WEAKNESS COMPARISON: None TECHNIQUE: Contiguous axial images of the brain were obtained without the administration of intraven ous contrast.This exam was performed according to our departmental dose-optimization program which in cludes use of Automated Exposure Control, adjustment of the mA and/or kV according to patient size an d/or use of iterative reconstruction technique. DLP: 817 mGy*cm FINDINGS: Brain: No acute intracranial hemorrhage. No extra-axial collection. No mass effect or courtney iation. Mild prominence of the sulci and cisterns. Confluent periventricular and subcortical white matter hypodensity is noted. Ventricles: Within normal limits in size. Globes and orbits: No acute abnormality. Bones: No acute osseous finding Paranasal sinuses: Paranasal sinuses are clear. Mastoid air cells: Well pneumatized. Soft tissues: Within normal limits IMPRESSION: No acute intracranial hemorrhage, hydrocephalus or herniation. And mild cerebral volume loss and chronic small vessel ischemic changes. If persistent clinical gordon rn for acute ischemia, consider MRI brain without contrast for further evaluation. Electronically signed by: Barrera Torrez DO 06/28/2019 10:14 PM SQL DEVELOPER DBA Due to temporary technical issues with the PACS/Fluency reporting system, reports are being signed by the in house radiologist as a courtesy to ensure prompt reporting. The interpreting radiologist is f ully responsible for the content of the report.
== END 2019-06-28 23:32 | disposition home or self-care (01) ==
LOC: ER 19:38
DX: R53.1 Weakness (principal); I10 Essential (primary) hypertension; E11.9 Type 2 diabetes mellitus without complications; Z79.4 Long term (current) use of insulin; Z88.5 Allergy status to narcotic agent; Z88.6 Allergy status to analgesic agent
CPT/HCPCS: 96361; 85025; 80048; 36415; 82947; 80076; 83690; 70450; 71045; 96375; 96374; 99284; J2765; J7030; J2405